=== PATIENT | female | born 1990 | race African-American/Black ===

== ENCOUNTER 2020-10-23 00:28 | Emergency (ER) | payer SELFPAY ==
[~2020-10-23] VITALS: Ht 170.2 cm; Wt 88.5 kg
--- NOTE | 2020-10-23 01:00 | NUR ---
ED Nurse Note: walked in to ed c/o cough onset 2 wks ago. pt states hx bronchitis and was tested neg covid on . denies sob. vss, nad, aaox4, ambulatory, ermd at bedside
[2020-10-23] MEDS ORDERED: ALBUTEROL SULF8.5 G1 INH (01:06)
[2020-10-23] MEDS ORDERED: PROMETHAZINE-C118 M1 ORAL (01:06)
--- NOTE | 2020-10-23 01:07 | Emergency Room Report ---
History of Present Illness General Chief Complaint: Upper Respiratory Illness Source: Patient Present Illness [facility] This is a 30-year-old female with history of lupus. She presents with chief plaint of cough. Ongoing for a week and a half now. She seen in urgent care twice. She had couple of chest x-ray done already. She had 4 - Covid testing done. Initially was treated with antibiotics and Tessalon Perles. She finished that it did not help. She came back 3 days ago and was placed on steroid and Robitussin.. Now that she is allergic to guaifenesin. She still having coughing. Worse with inspiration. No fever or chills. No sputum. Worse with laying flat. History of bronchitis when she was . No diagnosis of asthma. COVID-19 Screening Contact w/high risk pt: No Experienced COVID-19 symptoms?: No COVID-19 Testing performed [employer]: Yes COVID-19 Screening: Negative COVID-19 COVID-19 Testing Source: [facility] Patient History Past Medical History: see triage record, old chart reviewed Past Surgical History: none Pertinent Family History: none Social History: Denies: smoking Now: No Immunizations: other Reviewed Nursing Documentation: PMH: Agreed; PSxH: Agreed Review of Systems Eye: Denies: eye pain, blurred vision ENT: Denies: ear pain, nose congestion, throat swelling Respiratory: Reports: cough; Denies: shortness of breath Cardiovascular: Denies: chest pain, palpitations Gastrointestinal: Denies: abdominal pain, diarrhea, nausea, vomiting Musculoskeletal: Denies: back pain, joint pain Skin: Denies: rash Neurological: Denies: headache, numbness Endocrine: Denies: increased thirst, increased urine Hematologic/Lymphatic: Denies: easy bruising All Other Systems: negative except mentioned in HPI Physical Exam Vital Signs Date Time Temp Pulse Resp B/P (MAP) Pulse Ox O2 Delivery O2 Flow Rate FiO2 10/23/20 00:46 98.2 78 18 106/62 (77) 98 Room Air Vitals normal Sp02 EP Interpretation: reviewed, normal General Appearance: well appearing, no apparent distress, alert Head: normocephalic, atraumatic Eyes: bilateral eye PERRL, bilateral eye EOMI ENT: hearing grossly normal, normal pharynx Neck: full range of motion, supple, no meningismus Respiratory: chest non-tender, lungs clear, normal breath sounds Cardiovascular #1: regular rate, rhythm, no murmur Gastrointestinal: normal bowel sounds, non tender, no mass, no organomegaly, no bruit, non-distended Musculoskeletal: back normal, normal range of motion, gait/station normal Psychiatric: mood/affect normal Medical Decision Making Diagnostic Impression: Primary Impression: Reactive airway disease Qualified Codes: J45.20 - Mild intermittent asthma, uncomplicated ER Course This patient presents with coughing. No evidence of ACS, PE, dissection or pneumonia to name a few. Will discharge home. Last Vital Signs Date Time Temp Pulse Resp B/P (MAP) Pulse Ox O2 Delivery O2 Flow Rate FiO2 10/23/20 00:46 98.2 78 18 106/62 (77) 98 Room Air Status: unchanged Disposition: HOME, SELF-CARE Condition: Stable Scripts Codeine/Promethazine Hcl* (PROMETHAZINE-CODEINE SYRUP*) 118 Ml Syrup 5 ML ORAL Q6H PRN for For Cough, #240 ML 0 Refills Prov: Bk Cotto MD 10/23/20 Albuterol Sulfate* (Albuterol Sulfate Hfa*) 8.5 Gm Hfa.aer.ad 2 PUFF INH Q4H, #1 INH Prov: Bk Cotto MD 10/23/20 Referrals: NOT CHOSEN IPA/,REFERRING (PCP) Additional Instructions: Follow-up with your doctor in 7 days. Return if symptoms worsen. Bk Cotto MD Oct 23, 2020 01:06
[2020-10-23 01:10] VITALS: BP 111/65
--- NOTE | 2020-10-23 01:10 | NUR ---
ER DISCHARGE NOTE: Patient is cleared to be discharged per ERMD, pt is aox4, on room air, with stable vital signs. pt was given dc and prescription instructions, pt was able to verbalize understanding, pt id band removed without complications. pt is able to ambulate with steady gait. pt took all belongings.
== END 2020-10-23 01:10 | disposition home or self-care (01) ==
LOC: EMR 00:47
DX: J45.20 Mild intermittent asthma, uncomplicated (principal)
CPT/HCPCS: 99282